=== PATIENT | female | born 1945 | race Caucasian/White ===

== ENCOUNTER 2019-08-17 20:43 | Inpatient (IN) | payer MEDICARE, MEDICAID ==
[~2019-08-17] VITALS: Ht 152.4 cm; Wt 54.0 kg
[2019-08-17 20:51] VITALS: BP 119/39
[2019-08-17] MEDS ORDERED: LIPITOR80 MG PO (20:59)
[2019-08-17] MEDS ORDERED: BUSPIRONE HCL5 MG PO (20:59)
[2019-08-17] MEDS ORDERED: KEPPRA XR500 MG PO (21:00)
[2019-08-17] MEDS ORDERED: DEPAKOTE ER500 M1 PO (21:00)
[2019-08-17] MEDS ORDERED: METOPROLOL TART25 MG PO (21:01)
[2019-08-17] MEDS ORDERED: COZAAR 25 MG TA25 M1 PO (21:01)
[2019-08-17] MEDS ORDERED: LEVOXYL25 MCG PO (21:01)
[2019-08-17] MEDS ORDERED: TYLENOL325 M1 PO (21:02)
[2019-08-17] MEDS ORDERED: MIRALAX119 GM PO (21:02)
[2019-08-17] MEDS ORDERED: CVS NIGHTTIME118 ML PO (21:03)
[2019-08-17] MEDS ORDERED: PROAIR DIGIHAL90 MCG INH (21:03)
[2019-08-17 21:10] LABS: ABSOLUTE BASOPHILS 0.1 thou/uL (0.0-0.2); ABSOLUTE MONOCYTES 0.8 thou/uL (0.0-1.2); ABSOLUTE NEUTROPHILS 7.6 thou/uL (1.6-8.1); BASOPHILS 0.8 %; EOSINOPHILS 0.3 %; HEMATOCRIT 36.8 % (37.0-47.0); HEMOGLOBIN 12.6 gm/dL (12.0-15.0); LYMPHOCYTES 10.7 %; MCH 32.7 pg (26.0-34.0); MCHC 34.3 g/dL (28.0-37.0); MCV 95.5 fL (80.0-100.0); MONOCYTES 8.8 %; MPV 8.4 fl. (7.2-11.1); NUCLEATED RBCS 0 /100WBC; PLATELET COUNT* 273 thou/uL (150-400); POLYS 79.4 %; RBC 3.85 mil/uL (4.20-5.00); RDW-CV 13.7 % (10.5-14.5); WBC 9.6 thou/uL (4.0-11.0)
[2019-08-17 21:22] LABS: BE 2.8 mmol/L (-2 to +3); PCO2 40.2 mmHg (35.0-45.0); PO2 67.3 mmHg (75.0-100.0); pH 7.445 (7.340-7.450)
[2019-08-17 21:32] LABS: CALCIUM 9.1 mg/dL (8.5-10.1); CREATININE 0.8 mg/dL (0.6-1.3)
[2019-08-17 21:35] LABS: ALBUMIN 3.3 g/dL (3.4-5.0); MAGNESIUM 1.8 mg/dL (1.8-2.4); TOTAL BILIRUBIN 0.6 mg/dL (<0.1-1.0); TOTAL PROTEIN 6.9 g/dL (6.4-8.2)
[2019-08-17 22:39] LABS: INFLUENZA A ANTIGEN Negative (Negative); INFLUENZA B ANTIGEN Negative (Negative)
[2019-08-17 23:43] LABS: URINE BILIRUBIN NEGATIVE (Negative); URINE BLOOD NEGATIVE (Negative); URINE CLARITY CLEAR; URINE COLOR YELLOW; URINE GLUCOSE-RANDOM NEGATIVE (Negative); URINE KETONES 1+ (Negative); URINE LEUKOCYTES-REFLEX 1+ (Negative); URINE PROTEIN NEGATIVE (Negative)
[2019-08-17 23:44] LABS: URINE NITRITE-REFLEX POSITIVE (Negative)
[2019-08-17 23:55] VITALS: BP 101/37
[2019-08-18] VITALS (7 sets, daily range): BP systolic 90–126; BP diastolic 33–56
[2019-08-18 00:02] LABS: BACTERIA-REFLEX >30 Many /HPF (None Seen); FINE GRANULAR CASTS 0-3 Few /LPF (None Seen); HYALINE CASTS 0-3 Few /LPF (None Seen); MUCUS 4-6 Moderate strn/LPF (None Seen); SQUAMOUS 0-3 Few /LPF (0-3); URINE RBC 3-10 Few /HPF (0-2); URINE WBC-REFLEX >25 Many /HPF (0-5); WBC CLUMPS Few (None Seen)
[2019-08-18 00:03] LABS: CRYSTALS None Seen /LPF (None Seen)
--- NOTE | 2019-08-18 10:27 | EKG ---
[place] [address] ELECTROCARDIOGRAM REPORT Name: NAMRATA PARRA Room: [address] ADM IN M.R.#: [id number] Admission: 08/17/19 Attend Phys: Bryan Diaz Discharge: Date of : 41 Report #: [id number] THIS REPORT FOR: //name// [facility] ED Test Date: 2019-08-17 Test Time: 20:54:48 Pat Name: NAMRATA PARRA Department: Room: [facility] Gender: F Lead Ios Developer: [place] : 1945 Requested By: Alexsandra Sanders Order Number: [id number] MD: Dante Gutiérrez Measurements Intervals [place] Rate: 93 P: RI: QRS: 74 QRSD: 78 T: -86 QT: 430 QTc: 535 Interpretive Statements Atrial fibrillation Nonspecific T abnormalities, lateral leads Prolonged QT interval Artifact in lead(s) II,aVF,V1,V2 No previous ECG available for comparison Electronically Signed On 08-18-2019 10:26:35 TALENT DEVELOPMENT COORDINATOR by Dante Gutiérrez [email or web address] <ELECTRONICALLY SIGNED> By: Dante Gutiérrez MD, [facility] 08/18/19 1026 53 53 Dante Gutiérrez MD, [facility] /EPI
[2019-08-19] VITALS (7 sets, daily range): BP systolic 93–117; BP diastolic 41–53
[2019-08-20 04:10] VITALS: BP 87/46
[2019-08-20 05:00] VITALS: BP 110/49
[2019-08-20 05:22] LABS: MCH 32.8 pg (26.0-34.0); MCHC 34.4 g/dL (28.0-37.0); MCV 95.3 fL (80.0-100.0); MPV 8.8 fl. (7.2-11.1); RBC 2.62 mil/uL (4.20-5.00); RDW-CV 13.4 % (10.5-14.5); WBC 5.3 thou/uL (4.0-11.0)
[2019-08-20 05:50] LABS: CALCIUM 7.6 mg/dL (8.5-10.1); CREATININE 0.5 mg/dL (0.6-1.3); MAGNESIUM 1.6 mg/dL (1.8-2.4); POTASSIUM 3.7 mmol/L (3.5-5.1)
[2019-08-20 06:01] LABS: HEMOGLOBIN 8.6 gm/dL (12.0-15.0)
[2019-08-20 08:00] VITALS: BP 104/44
[2019-08-20 11:07] VITALS: BP 90/31
[2019-08-20 16:36] VITALS: BP 98/47
[2019-08-20 20:00] VITALS: BP 93/34
[2019-08-21] VITALS: BP 99/40
[2019-08-21 04:00] VITALS: BP 115/44
[2019-08-21 09:01] VITALS: BP 128/59
[2019-08-21] MEDS ORDERED: MACROBID 100 M100 MG PO (15:25)
[2019-08-21] MEDS ORDERED: MUCINEX1200 MG PO (15:30)
[2019-08-21] MEDS ORDERED: CEFDINIR300 MG PO (15:30)
[2019-08-21 16:53] VITALS: BP 128/59
== END 2019-08-21 17:15 | DRG 193 ==
LOC: M.ERS 20:43 → EDBD 20:43 → M.2W 22:46 → M.TBA-ER 22:46 → M.2W 08-18 00:35
PROVIDERS: Personal Emergency Response Attendant; ADMIT Family Medicine
DX: J12.9 Viral pneumonia, unspecified (principal); G93.41 Metabolic encephalopathy; R65.11 Systemic inflammatory response syndrome (SIRS) of non-infectious origin with acute organ dysfunction; J96.01 Acute respiratory failure with hypoxia; N39.0 Urinary tract infection, site not specified; F02.81 Dementia in other diseases classified elsewhere, unspecified severity, with behavioral disturbance; Z66 Do not resuscitate; I10 Essential (primary) hypertension; E78.00 Pure hypercholesterolemia, unspecified; E03.9 Hypothyroidism, unspecified; G40.909 Epilepsy, unspecified, not intractable, without status epilepticus; G30.9 Alzheimer's disease, unspecified; Z88.2 Allergy status to sulfonamides; Z79.899 Other long term (current) drug therapy

== ENCOUNTER 2020-11-22 15:27 | Inpatient (IN) | payer MEDICARE, MEDICAID ==
[~2020-11-22] VITALS: Ht 160 cm; Wt 63.1 kg
[~2020-11-22 15:27] MED LIST: BUSPIRONE HCL5 MG PO; CEFDINIR300 MG PO; COZAAR 25 MG TA25 M1 PO; CVS NIGHTTIME118 ML PO; DEPAKOTE ER500 M1 PO; KEPPRA XR500 MG PO; LEVOXYL25 MCG PO; LIPITOR80 MG PO; MACROBID 100 M100 MG PO; METOPROLOL TART25 MG PO; MIRALAX119 GM PO; MUCINEX1200 MG PO; PROAIR DIGIHAL90 MCG INH; TYLENOL325 M1 PO
[2020-11-22] MEDS ORDERED: FLOMAX0.4 MG PO (15:37)
[2020-11-22] MEDS ORDERED: AUGMENTIN 875-1 EACH PO (15:38)
[2020-11-22] MEDS ORDERED: LORATIDINE 10 M10 M1 PO (15:38)
[2020-11-22] MEDS ORDERED: LASIX 40 MG TAB40 MG PO (15:38)
[2020-11-22] MEDS ORDERED: PROBIOTIC1 EAC7 PO (15:39)
[2020-11-22] MEDS ORDERED: TUSSIN15 MG/5 ML PO (15:39)
[2020-11-22 16:08] LABS: ABSOLUTE BASOPHILS 0.1 thou/uL (0.0-0.2); ABSOLUTE EOSINOPHILS 0.1 thou/uL (0.0-0.7); ABSOLUTE LYMPHOCYTES 1.9 thou/uL (0.8-5.3); ABSOLUTE MONOCYTES 1.4 thou/uL (0.0-1.2); ABSOLUTE NEUTROPHILS 11.3 thou/uL (1.6-8.1); BASOPHILS 0.7 %; EOSINOPHILS 0.4 %; HEMATOCRIT 35.5 % (37.0-47.0); HEMOGLOBIN 11.7 gm/dL (12.0-15.0); LYMPHOCYTES 13.1 %; MCH 31.2 pg (26.0-34.0); MCHC 32.9 g/dL (28.0-37.0); MCV 94.8 fL (80.0-100.0); MONOCYTES 9.3 %; MPV 7.8 fl. (7.2-11.1); NUCLEATED RBCS 0 /100WBC; PLATELET COUNT* 272 thou/uL (150-400); POLYS 76.5 %; RBC 3.74 mil/uL (4.20-5.00); RDW-CV 13.2 % (10.5-14.5); WBC 14.8 thou/uL (4.0-11.0)
[2020-11-22 16:19] LABS: CALCIUM 9.1 mg/dL (8.5-10.1); POTASSIUM 5.3 mmol/L (3.5-5.1)
[2020-11-22 16:21] LABS: URINE BILIRUBIN NEGATIVE (Negative); URINE BLOOD 1+ (Negative); URINE COLOR YELLOW; URINE GLUCOSE-RANDOM NEGATIVE (Negative); URINE KETONES TRACE (Negative); URINE PROTEIN 1+ (Negative)
[2020-11-22 16:22] LABS: URINE CLARITY CLOUDY; URINE LEUKOCYTES-REFLEX 3+ (Negative); URINE NITRITE-REFLEX POSITIVE (Negative)
[2020-11-22 16:23] LABS: APTT 23.6 Seconds (25.0-31.3)
[2020-11-22 16:30] LABS: SQUAMOUS 0-3 Few /LPF (0-3); URINE RBC 3-10 Few /HPF (0-2); URINE WBC-REFLEX >25 Many /HPF (0-5)
[2020-11-22 16:30] LABS: ALBUMIN 2.9 g/dL (3.4-5.0); TOTAL BILIRUBIN 0.4 mg/dL (<0.1-1.0); TOTAL PROTEIN 6.9 g/dL (6.4-8.2)
[2020-11-22 16:31] LABS: BACTERIA-REFLEX >30 Many /HPF (None Seen); CASTS None Seen /LPF (None Seen); CRYSTALS None Seen /LPF (None Seen)
--- NOTE | 2020-11-22 18:34 | NUR ---
ATTEMPTED TO CALL DPOA, EDWINA PARRA, SON NO ANSWER AT THIS TIME
[2020-11-22 20:29] VITALS: BP 105/48
[2020-11-22 21:00] VITALS: BP 110/55
[2020-11-23 00:14] VITALS: BP 105/49
[2020-11-23 05:12] LABS: ABSOLUTE EOSINOPHILS 0.1 thou/uL (0.0-0.7); ABSOLUTE LYMPHOCYTES 1.1 thou/uL (0.8-5.3); ABSOLUTE MONOCYTES 1.3 thou/uL (0.0-1.2); ABSOLUTE NEUTROPHILS 8.2 thou/uL (1.6-8.1); BASOPHILS 0.1 %; EOSINOPHILS 0.7 %; HEMOGLOBIN 9.9 gm/dL (12.0-15.0); LYMPHOCYTES 10.2 %; MCH 31.2 pg (26.0-34.0); MCHC 32.9 g/dL (28.0-37.0); MONOCYTES 12.3 %; NUCLEATED RBCS 0 /100WBC; PLATELET COUNT* 209 thou/uL (150-400); POLYS 76.7 %; RBC 3.16 mil/uL (4.20-5.00); RDW-CV 13.4 % (10.5-14.5); WBC 10.7 thou/uL (4.0-11.0)
[2020-11-23 05:35] LABS: CALCIUM 8.3 mg/dL (8.5-10.1); CREATININE 0.9 mg/dL (0.6-1.3)
[2020-11-23 05:49] LABS: POTASSIUM 3.6 mmol/L (3.5-5.1)
--- NOTE | 2020-11-23 07:51 | NUR ---
Pt admitted to floor at 2030. Pt aox1 (this is baseline due to dementia). Pt pleasant and cooperative, though impulsive, but redirectable. Respirations are even and unlabored. Lung sounds are clear on auscultation. Pt was on 5L NC when brought up from ER. Pt's SO2 was 93-94% on room air so oxygen was discontinued. Heart sounds S1S2 on auscultation. Pt running SA on telemetry. BP was soft throughout shift 110/50's to 100/40's. Metoprolol was held x2. Pt is medically stable at this time.
[2020-11-23 08:00] VITALS: BP 114/36
[2020-11-23 11:40] VITALS: BP 104/35
--- NOTE | 2020-11-23 12:30 | EKG ---
[place] [address] ELECTROCARDIOGRAM REPORT Name: NAMRATA PARRA Room: [address] ADM IN M.R.#: [id number] Admission: 11/22/20 Attend Phys: Afshin [place], Discharge: Date of : 41 Date of Service: 11/22/20 1600 Report #: [id number] THIS REPORT FOR: //name// [facility] ED Test Date: 2020-11-22 Test Time: 16:00:16 Pat Name: NAMRATA PARRA Department: Room: [facility] Gender: F Continuity Editor: ERNESTINE : 1945 Requested By: Lorne Chandra Order Number: [id number] MD: Martir Rodrigues Measurements Intervals [place] Rate: 144 P: NE: QRS: -20 QRSD: 200 T: QT: QTc: 0 Interpretive Statements Suboptimal tracing. Recommend repeat EKG. Tremor artifact present. Probable normal sinus rhythm with a short run of PSVT. No further analysis attempted due to paced rhythm Artifact in lead(s) I,II,III,aVR,aVL,aVF,V1,V2,V3,V4,V5,V6 Compared to ECG 08/17/2019 20:54:48 Atrial fibrillation no longer present T-wave abnormality no longer present Prolonged QT interval no longer present Electronically Signed On 11-23-2020 12:30:14 CDT by Martir Rodrigues [email or web address] <ELECTRONICALLY SIGNED> By: Juani Rodrigues MD, [facility] 11/23/20 1230 1600 99 Juani Rodrigues MD, [facility] /EPI
[2020-11-23 16:11] VITALS: BP 105/37
--- NOTE | 2020-11-23 18:56 | NUR ---
RECEIVED REPORT. ASSUMED CARE OF PT AROUND 0730. AM ASSESSMENT AND VITALS COMPLETED CHARTED. SCREEN DOOR MAKER IN PLACE. PT REMAINED CONFUSED THROUGHOUT THE SHIFT, THOUGH BECAME MORE ALERT BY THIS AFTERNOON. IMPULSIVE AT TIMES. INCONTINET MULTIPLE TIMES - PT CLEANED AND LINENS CHANGED. PT ABLE TO DRINK TWO ENSURE SHAKES THIS SHIFT, BUT REFUSED ALL OTHER FOOD. MEDS PER EMAR. FAMILY CALLED AND RECEIVED UPDATE. FALL PRECAUTIONS IN PLACE. CALL LIGHT WITHIN REACH. HOURLY ROUNDING PERFORMED.
[2020-11-23 20:00] VITALS: BP 124/43
[2020-11-24 04:29] LABS: ABSOLUTE EOSINOPHILS 0.1 thou/uL (0.0-0.7); ABSOLUTE LYMPHOCYTES 1.7 thou/uL (0.8-5.3); ABSOLUTE NEUTROPHILS 5.3 thou/uL (1.6-8.1); BASOPHILS 0.3 %; EOSINOPHILS 1.3 %; HEMATOCRIT 28.5 % (37.0-47.0); HEMOGLOBIN 9.3 gm/dL (12.0-15.0); LYMPHOCYTES 21.1 %; MCH 31.3 pg (26.0-34.0); MCHC 32.7 g/dL (28.0-37.0); MCV 95.6 fL (80.0-100.0); MONOCYTES 12.3 %; MPV 8.1 fl. (7.2-11.1); NUCLEATED RBCS 0 /100WBC; PLATELET COUNT* 201 thou/uL (150-400); RBC 2.98 mil/uL (4.20-5.00); RDW-CV 13.2 % (10.5-14.5); WBC 8.1 thou/uL (4.0-11.0)
[2020-11-24 06:41] VITALS: BP 108/41
--- NOTE | 2020-11-24 06:43 | NUR ---
Shift uneventful. Pt aox1, running SA on telemetry, respirations slightly tachypneic with fine crackles in lung bases and wheezes throughout. Pt is medically stable at this time.
[2020-11-24 08:00] VITALS: BP 94/50
[2020-11-24 12:00] VITALS: BP 100/34
[2020-11-24 16:00] VITALS: BP 104/33
--- NOTE | 2020-11-24 18:45 | NUR ---
RECEIVED REPORT. ASSUMED CARE OF PT AROUND 0730. AM ASSESSMENT AND VITALS COMPLETED THIS AM. VICE INVESTIGATOR IN PLACE. PT STATES SHE FELT POORLY THIS AM AND WAS VERY LETHARGIC; LUNGS WET SOUNDING. DR NOTIFED - FLUIDS DC'D. PT MUCH IMPROVED BY END OF SHIFT - MORE ALERT, APPETITE IMPROVED, ABLE TO SIT UP IN BEDSIDE CHAIR. MEDS PER EMAR. FALL PRECAUTIONS IN PLACE. CALL LIGHT WITHIN REACH. HOURLY ROUNDING PERFORMED. UPDATE GIVEN TO FAMILY.
[2020-11-24 20:00] VITALS: BP 106/47
[2020-11-25] VITALS (7 sets, daily range): BP systolic 100–125; BP diastolic 45–75
[2020-11-25 10:27] LABS: ABSOLUTE EOSINOPHILS 0.2 thou/uL (0.0-0.7); ABSOLUTE LYMPHOCYTES 1.2 thou/uL (0.8-5.3); ABSOLUTE MONOCYTES 0.5 thou/uL (0.0-1.2); ABSOLUTE NEUTROPHILS 2.2 thou/uL (1.6-8.1); BASOPHILS 0.7 %; EOSINOPHILS 4.8 %; HEMATOCRIT 29.4 % (37.0-47.0); HEMOGLOBIN 9.7 gm/dL (12.0-15.0); LYMPHOCYTES 29.4 %; MCH 31.2 pg (26.0-34.0); MCHC 33.1 g/dL (28.0-37.0); MCV 94.3 fL (80.0-100.0); MONOCYTES 12.1 %; MPV 7.5 fl. (7.2-11.1); NUCLEATED RBCS 0 /100WBC; PLATELET COUNT* 191 thou/uL (150-400); RBC 3.12 mil/uL (4.20-5.00); RDW-CV 13.1 % (10.5-14.5); WBC 4.1 thou/uL (4.0-11.0)
[2020-11-25 10:48] LABS: ALBUMIN 1.9 g/dL (3.4-5.0); CALCIUM 8.2 mg/dL (8.5-10.1); CREATININE 0.7 mg/dL (0.6-1.3); POTASSIUM 3.2 mmol/L (3.5-5.1); TOTAL BILIRUBIN 0.4 mg/dL (<0.1-1.0); TOTAL PROTEIN 5.2 g/dL (6.4-8.2)
--- NOTE | 2020-11-25 14:33 | NUR ---
Spoke to paul Sanchez [phone] plan is for patient to return to LTC at [facility] after hospitalization. No additional needs identified at this time. Case and plan of care reviewed with MD. Plan is for discharge back to LTC tomorrow.
--- NOTE | 2020-11-25 16:55 | NUR ---
RECEIVED REPORT AROUND 0715. ASSUMED CARE. VS AND ASSESSMENT CHARTED. IV INTACT. HEART MONITOR ATTACHED AT SA. PT LYING IN BED. Q2 TURNS. INCONTINENT. BOWEL MOVEMENT TODAY. PURWICK IN PLACE. PT REFUSING TO EAT. HAD A FEW SIPS OF WATER. NO MEDS GIVEN BY MOUTH DUE TO REFUSAL OF NOT WANTING TO EAT OR OPENING MOUTH. HOURLY ROUNDING PERFORMED. CALL LIGHT WITHIN REACH. WILL CONTINUE TO MONITOR.
[2020-11-26 05:15] LABS: ABSOLUTE EOSINOPHILS 0.1 thou/uL (0.0-0.7); ABSOLUTE LYMPHOCYTES 1.3 thou/uL (0.8-5.3); ABSOLUTE MONOCYTES 0.5 thou/uL (0.0-1.2); BASOPHILS 0.5 %; EOSINOPHILS 3.1 %; HEMATOCRIT 30.7 % (37.0-47.0); HEMOGLOBIN 10.2 gm/dL (12.0-15.0); LYMPHOCYTES 33.4 %; MCH 31.5 pg (26.0-34.0); MCHC 33.3 g/dL (28.0-37.0); MCV 94.6 fL (80.0-100.0); MONOCYTES 11.9 %; NUCLEATED RBCS 0 /100WBC; PLATELET COUNT* 199 thou/uL (150-400); POLYS 51.1 %; RBC 3.25 mil/uL (4.20-5.00); RDW-CV 12.8 % (10.5-14.5); WBC 3.9 thou/uL (4.0-11.0)
[2020-11-26 05:23] VITALS: BP 119/46
[2020-11-26 05:26] LABS: CALCIUM 8.4 mg/dL (8.5-10.1); CREATININE 0.5 mg/dL (0.6-1.3); POTASSIUM 3.2 mmol/L (3.5-5.1)
--- NOTE | 2020-11-26 07:47 | NUR ---
PATIENT HAS SLEPT WELL THROUGHOUT MOST OF THE NIGHT. VSS ON RA. MEDICATIONS GIVEN ORDERED AND CHARTED. PATIENT INCONTINENT OF BOWEL AND BLADDER AND KINZA CARE PERFORMED. PATIENT REMAINS ON SEIZURE PRECAUTIONS. NEW IV INSERTED IN LEFT HAND-SL. REPORT GIVEN TO DAY NURSE. FALL PRECAUTIONS IN PLACE AND HOURLY ROUNDS MADE. WILL CONTINUE WITH PLAN OF CARE AND NURSING TO MONITOR.
[2020-11-26 08:00] VITALS: BP 106/52
--- NOTE | 2020-11-26 08:36 | NUR ---
RECEIVED REPORT AROUND 0715. ASSUMED CARE. VS AND ASSESSMENT CHARTED. IV INTACT. HEART MONITOR ATTACHED AT SA. PT LYING IN BED. PLEASANTLY CONFUSED. NO COMPLAINTS OF PAIN. CALL LIGHT WITH IN REACH. WILL CONTINUE TO MONITOR.
--- NOTE | 2020-11-26 12:31 | NUR ---
PT CHANGED TO MED/SURG STATUS. PT TRANSFERRED TO [facility] ROOM 104 AT 1225. MEDS GIVEN PER SEP. HOURLY ROUNDING PERFORMED. IV INTACT. PT TRANSFERRED BY BED WITH ALL BELONGINGS AND NURSING STAFF.
--- NOTE | 2020-11-26 12:58 | NUR ---
1230: PATIENT TRANSFERED TO [facility] AT THIS TIME VIA HOSPITAL BED ACCOMPANIED BY NURSE AND TECH. PATIENT RESTING IN BED. IV TO LEFT HAND, PATENT, SALING LOCKED. NO QUESTIONS OR CONCERNS VOICED.
--- NOTE | 2020-11-26 14:23 | NUR ---
ONGOING ASSESSMENT: PT DOWNGRADED TO MED-SURG. PT/OT TO EVAL. PT CONT ON ABX. PLAN AT D/C IS FOR PT TO RTRN TO LTC AT [facility].
[2020-11-26 16:22] VITALS: BP 137/57
--- NOTE | 2020-11-26 17:11 | NUR ---
THIS NURSE AGREES WITH ASSESSMENT
--- NOTE | 2020-11-26 18:44 | NUR ---
PATIENT RESTING IN BED, WATCHING TV. SZ PADS UP X4. BED IN LOW, LOCKED POSITON WITH BED ALARM ON. INCONTINENT FOR URINE AND BOWEL. IV TO LEFT HAND, PATENT, SALINE LOCKED. NO C/O PAIN/DISCOMFORT. NO QUESTIONS OR CONCERNS ADDRESSED.
[2020-11-26 19:30] VITALS: BP 121/59
--- NOTE | 2020-11-27 04:18 | NUR ---
PT TOOK MEDS WITH PUDDING A FEW AT A TIME AT HS, K GIVEN AND LAB DRAWN THIS MORNING WNL. AO TO SELF, CONFUSED BUT PLEASANT OVERNIGHT. PT MOVES ABOUT IN BED INDEP, TURNED AND REPOSITIONED FOR SKIN CARE AND COMFORT. SEIZURE PRECAUTIONS REMAIN IN PLACE. L HAND IV SL, ABX GIVEN ORDERED. INCONTINENT URINE OVERNIGHT, KINZA CARE GIVEN. DNR. BED ALARM ON FOR SAFETY. PT SET BED ALARM 4-5 TIMES OVERNIGHT ATTEMPTING TO GET OOB. CALL LITE IN REACH.
[2020-11-27 07:05] VITALS: BP 129/68
[2020-11-27] MEDS ORDERED: CIPROFLOXACIN250 M2 PO (11:46)
--- NOTE | 2020-11-27 11:49 | NUR ---
Pt discharging back to [facility] today, faxed updated clinicals and orders. Chart copied. Nurse report number is [phone]. [facility] to citrus picker and transport between 3-330pm. Updated Pt's son.
--- NOTE | 2020-11-27 14:47 | NUR ---
PT BELONGINGS GATHERED. REPORT CALLED TO FACILITY. IV REMOVED. PT LEFT VIA WHEELCHAIR WITH NURSING STAFF TO FACILITY. FALL RISK PRECAUTIONS IN PLACE. SEIZURE PRECAUTIONS IN PLACE. HOURLY ROUNDING COMPLETED.
--- NOTE | 2020-11-27 17:34 | NUR ---
RECIEVED O.T. ORDER. PT. DISCHARGED PRIOR TO O.T. EVAL. PLEASE ORDER FURTHER O.T. SERVICES IF NEEDED.
== END 2020-11-27 15:04 | DRG 871 ==
LOC: M.ERS 15:27 → M.TBA-ER 17:03 → M.2W 17:03 → M.ORTHSURG 11-26 12:27
PROVIDERS: Emergency Medicine Emergency Medical Services; ADMIT Internal Medicine; ATTEND Internal Medicine
DX: A41.9 Sepsis, unspecified organism (principal); G92 Toxic encephalopathy; J96.01 Acute respiratory failure with hypoxia; N39.0 Urinary tract infection, site not specified; F02.81 Dementia in other diseases classified elsewhere, unspecified severity, with behavioral disturbance; B96.20 Unspecified Escherichia coli [E. coli] as the cause of diseases classified elsewhere; G40.909 Epilepsy, unspecified, not intractable, without status epilepticus; E78.00 Pure hypercholesterolemia, unspecified; E03.9 Hypothyroidism, unspecified; I10 Essential (primary) hypertension; G30.9 Alzheimer's disease, unspecified; Z20.822 Contact with and (suspected) exposure to COVID-19; Z79.899 Other long term (current) drug therapy; Z88.2 Allergy status to sulfonamides; Z66 Do not resuscitate